=== PATIENT | female | born 2000 | race Caucasian/White ===

== ENCOUNTER 2019-05-17 01:50 | Inpatient (IN) | payer OTHER ==
[~2019-05-17] VITALS: Ht 162.6 cm; Wt 78.0 kg
[2019-05-17] MEDS ORDERED: LACTATED RINGERS 1,000 ML IV SCH (02:34)
[2019-05-17] MEDS ORDERED: OXYTOCIN 10 UNITS/ML VIAL IM SCH (02:35)
[2019-05-17] MEDS ORDERED: AMPICILLIN 2,000 MG in NACL 0.9% MINI-BAG PLUS 100 ML IV SCH (02:35)
[2019-05-17] MEDS ORDERED: PROMETHAZINE 25 MG/ML VIAL IVP PRN (02:35)
[2019-05-17] MEDS ORDERED: AMPICILLIN 2,000 MG VIAL ONE (03:30)
[2019-05-17 04:02] LABS: BASOPHILS % (AUTO) 0.5 % (0.0-2.0); EOSINOPHILS # (AUTO) 0.1 K/uL (0-0.4); EOSINOPHILS % (AUTO) 0.9 % (0.0-4.0); HEMATOCRIT 39.3 % (36-48); HEMOGLOBIN 13.6 g/dL (12.0-16.0); LYMPHOCYTES # (AUTO) 1.7 K/uL (2.5-16.5); LYMPHOCYTES % (AUTO) 18.5 % (20.5-51.1); MEAN CORPUSCULAR HEMOGLOBIN 33 pg (27-31); MEAN CORPUSCULAR HGB CONC 35 g/dL (33-37); MEAN CORPUSCULAR VOLUME 93.6 fL (80-94); MONOCYTES # (AUTO) 0.8 K/uL (0.8-1.0); MONOCYTES % (AUTO) 8.3 % (1.7-9.3); NEUTROPHILS # (AUTO) 6.5 K/uL (1.8-7.7); NEUTROPHILS % (AUTO) 71.8 % (42.2-75.2); PLATELET COUNT (AUTO) 230 K/uL (140-450); RED BLOOD CELL COUNT(AUTO) 4.19 MIL/uL (4.20-5.40); RED CELL DISTRIBUTION WIDTH 14.4 % (11.6-13.7); WHITE BLOOD COUNT (AUTO) 9.1 K/uL (4.5-11.0)
[2019-05-17 04:07] LABS: APPEARANCE,URINE CLOUDY (CLEAR); BILIRUBIN,URINE NEGATIVE (NEGATIVE); BLOOD, URINE TRACE-I (NEGATIVE); COLOR,URINE YELLOW (YELLOW); LEUKOCYTE ESTERASE ,URINE NEGATIVE (NEGATIVE); NITRITE, URINE NEGATIVE (NEGATIVE); PH,URINE 7.5 (5.0-9.0); UGLUCOSE NEGATIVE (NEGATIVE)
[2019-05-17 04:19] LABS: ALBUMIN 2.7 g/dL (3.4-5.0); ANION GAP 15.3 (8-16); CARBON DIOXIDE 24.4 mmol/L (21-32); CREATININE 0.5 mg/dL (0.6-1.3); POTASSIUM 3.7 mmol/L (3.5-5.1); TOTAL BILIRUBIN 0.2 mg/dL (0.0-1.0)
[2019-05-17 04:44] LABS: WBC,URINE 0-5 /HPF (0-5)
[2019-05-17 05:16] VITALS: BP 124/87
[2019-05-17] MEDS ORDERED: PREN-380 PO (05:26)
[2019-05-17] MEDS ORDERED: FERR325E14 PO (05:26)
[2019-05-17] MEDS ORDERED: AMPICILLIN 1,000 MG in NACL 0.9% 50 ML IVP SCH (08:00)
--- NOTE | 2019-05-17 08:55 | NUR ---
PATIENT HAS BEEN SCREENED AND CATEGORIZED LOW NUTRITION RISK. PATIENT WILL BE SEEN WITHIN 7 DAYS OF ADMISSION. 05/23/[address]
[2019-05-17] MEDS ORDERED: AMPICILLIN 1,000 MG VIAL ONE ×2 (09:28→13:35)
[2019-05-17] MEDS ORDERED: AMPICILLIN 1,000 MG in NACL 0.9% 50 ML IV SCH ×2 (09:48→12:00)
[2019-05-17] MEDS ORDERED: OXYTOCIN 20 UNITS/LR PREMIX 1,000 ML IV ONE (09:53)
[2019-05-17] MEDS ORDERED: OXYTOCIN 20 UNITS in LACTATED RINGERS 1,000 ML IV SCH (10:35)
[2019-05-17] MEDS ORDERED: MORPHINE SULFATE 10 MG/ML VIAL IVP PRN (10:40)
[2019-05-17] MEDS ORDERED: NALBUPHINE 10 MG/ML AMP IVP PRN (10:40)
[2019-05-17] MEDS ORDERED: MORPHINE SULFATE 10 MG/ML VIAL ONE (10:52)
[2019-05-17] MEDS ORDERED: PROMETHAZINE 25 MG/ML VIAL ONE (10:53)
[2019-05-17 10:58] VITALS: BP 121/84
[2019-05-17] MEDS ORDERED: BUPIVACAINE 0.125%/NS PREMIX 250 ML ONE (12:35)
[2019-05-17] MEDS ORDERED: OXYTOCIN 10 UNITS/ML VIAL ONE (15:24)
[2019-05-17] MEDS ORDERED: BENZOCAINE/MENTHOL 20%-0.5% 60 GM CAN TP PRN (22:10)
[2019-05-17] MEDS ORDERED: TEMAZEPAM 15 MG CAP PO PRN (22:10)
[2019-05-17] MEDS ORDERED: oxyCODONE/APAP 5/325 MG 1 TAB TAB PO PRN (22:10)
[2019-05-17] MEDS ORDERED: METHYLERGONOVINE 0.2 MG/ML AMP IM PRN (22:10)
[2019-05-17] MEDS ORDERED: MEASLES, MUMPS, AND RUBELLA 1 VIAL SQVAC PRN (22:10)
[2019-05-17] MEDS ORDERED: HYDROcodone/APAP 5/325 MG 1 TAB TAB PO PRN (22:10)
[2019-05-18] MEDS ORDERED: INFLUENZA VACCINE QUAD 0.5 ML SYR IMVAC PRN (01:45)
[2019-05-18] MEDS: ACETAMINOPHEN 325 MG TAB PO PRN ×2 (04:06→15:10)
[2019-05-18 08:05] LABS: HEMATOCRIT 36.2 % (36-48); HEMOGLOBIN 12.2 g/dL (12.0-16.0)
[2019-05-18 08:10] LABS: HEPATITIS B SURFACE ANTIGEN Negative (Negative)
[2019-05-18] MEDS: DOCUSATE SODIUM 100 MG GELCAP PO SCH ×2 (09:00→20:47)
[2019-05-18] MEDS ORDERED: DOCUSATE SOD/SENNA 50/8.6 MG 1 TAB PO SCH ×2 (21:00)
== END 2019-05-19 21:55 | disposition home or self-care (01) | DRG 560 ==
LOC: MFCC 01:50 → EDBD 01:50 → MLD 06:44 → MFCC 22:00
PROVIDERS: ADMIT Obstetrics & Gynecology; ATTEND Obstetrics & Gynecology
PROC: 10E0XZZ Delivery of Products of Conception, External Approach (ICD-10-PCS; principal; 2019-05-17)
PROC: 00HU33Z Insertion of Infusion Device into Spinal Canal, Percutaneous Approach (ICD-10-PCS; 2019-05-17)
PROC: 3E0R3BZ Introduction of Anesthetic Agent into Spinal Canal, Percutaneous Approach (ICD-10-PCS; 2019-05-17)
PROC: 3E0234Z Introduction of Serum, Toxoid and Vaccine into Muscle, Percutaneous Approach (ICD-10-PCS; 2019-05-18)
DX: O42.92 Full-term premature rupture of membranes, unspecified as to length of time between rupture and onset of labor (principal); O71.82 Other specified trauma to perineum and vulva; Z23 Encounter for immunization; Z3A.39 39 weeks gestation of pregnancy; Z37.0 Single live birth
CPT/HCPCS: 36415; 51702; 59409; 76805; 80053; 81001; 85018; 85025; 86592; 86762; 86886; 86900; 86901; 87086; 87340; 87653-90; 90715; J0290; J2270; J2550; J2590; J3490; J7120; Q0092